=== PATIENT | male | born 1995 | race American Indian/Alaskan Native ===

== ENCOUNTER 2016-12-26 13:19 | Emergency (ER) | payer SELFPAY ==
[2016-12-26 13:30] VITALS: BP 124/88
[2016-12-26 14:05] LABS: Mean Corpuscular HGB Conc 31 % (32-34); Mean Corpuscular Hemoglobin 27 pg (28-32); Mean Corpuscular Volume 87 fl (84-94); Platelet Count 226 K/mm3 (140-440); Red Blood Count 6.47 M/mm3 (3.65-5.03); Red Cell Distribution Width 14.3 % (13.2-15.2)
[2016-12-26 14:23] LABS: Albumin 5.6 g/dL (3.9-5); Albumin/Globulin Ratio 1.6 %; Alkaline Phosphatase 118 units/L (35-129); Anion Gap 37 mmol/L; Bilirubin,Total 0.6 mg/dL (0.1-1.2); Blood Urea Nitrogen 17 mg/dL (9-20); Calcium 9.8 mg/dL (8.4-10.2); Carbon Dioxide 11 mmol/L (22-30); Chloride 95.5 mmol/L (98-107); Glucose 136 mg/dL (75-100); Hemoglobin 17.2 gm/dl (11.8-15.2); Lipase 30 units/L (13-60); Sodium 137 mmol/L (137-145); Total Protein 9.2 g/dL (6.3-8.2)
[2016-12-26 14:24] LABS: Hematocrit 56.1 % (35.5-45.6)
[2016-12-26 14:26] LABS: Potassium TNR mmol/L (3.6-5.0)
[2016-12-26 14:27] LABS: Alanine Aminotransferase TNR units/L (7-56)
[2016-12-26 15:38] LABS: Basophils % (Manual) 0 % (0.0-1.8); Blastocytes % (Manual) 0 %; Eosinophils % (Manual) 0 % (0.0-4.3)
[2016-12-26 15:39] LABS: Diff Status Complete; Ovalocytes Few
[2016-12-26 15:57] LABS: Alanine Aminotransferase 60 units/L (7-56); Albumin 5.6 g/dL (3.9-5); Albumin/Globulin Ratio 1.4 %; Alkaline Phosphatase 115 units/L (35-129); Anion Gap 32 mmol/L; BUN/Creatinine Ratio 15.45; Bilirubin,Total 0.7 mg/dL (0.1-1.2); Blood Urea Nitrogen 17 mg/dL (9-20); Calcium 10.2 mg/dL (8.4-10.2); Carbon Dioxide 15 mmol/L (22-30); Chloride 99.9 mmol/L (98-107); Glucose 145 mg/dL (75-100); Lipase 25 units/L (13-60); Potassium 5.7 mmol/L (3.6-5.0); Sodium 141 mmol/L (137-145); Total Protein 9.5 g/dL (6.3-8.2)
--- NOTE | 2016-12-27 06:19 | ED Elopement Review ---
ED Pt Elopement review - Results review Lab results: Laboratory Tests 12/26/16 12/26/16 12/26/16 13:45 13:45 15:10 WBC 28.0 H RBC 6.47 H Hgb 17.2 H Hct 56.1 H MCV 87 MCH 27 L MCHC 31 L RDW 14.3 Plt Count 226 Add Manual Diff Complete Total Counted 200 Seg Neutrophils % Family Service Worker Seg Neuts % (Manual) 84.5 H Band Neutrophils % 10.0 Lymphocytes % (Manual) 1.5 L Reactive Lymphs % (Man) 0 Monocytes % (Manual) 4.0 Eosinophils % (Manual) 0 Basophils % (Manual) 0 Metamyelocytes % 0 Myelocytes % 0 Promyelocytes % 0 Blast Cells % 0 Nucleated RBC % Not Reportable Seg Neutrophils # Man 23.7 H Band Neutrophils # 2.8 Lymphocytes # (Manual) 0.4 L Abs React Lymphs (Man) 0.0 Monocytes # (Manual) 1.1 H Eosinophils # (Manual) 0.0 Basophils # (Manual) 0.0 Metamyelocytes # 0.0 Myelocytes # 0.0 Promyelocytes # 0.0 Blast Cells # 0.0 WBC Morphology Not Reportable Hypersegmented Neuts Not Reportable Hyposegmented Neuts Not Reportable Hypogranular Neuts Not Reportable Smudge Cells Not Reportable Toxic Granulation Not Reportable Toxic Vacuolation Not Reportable Dohle Bodies Not Reportable Pelger-Huet Anomaly Not Reportable Dima Rods Not Reportable Platelet Estimate Appears normal Clumped Platelets Not Reportable Plt Clumps, EDTA Not Reportable Large Platelets Not Reportable Giant Platelets Not Reportable Platelet Satelliting Not Reportable Plt Morphology Comment Not Reportable RBC Morphology Not Reportable Dimorphic RBCs Not Reportable Polychromasia Not Reportable Hypochromasia Not Reportable Poikilocytosis Not Reportable Anisocytosis Not Reportable Microcytosis Not Reportable Macrocytosis Not Reportable Spherocytes Not Reportable Pappenheimer Bodies Not Reportable Sickle Cells Not Reportable Target Cells Not Reportable Tear Drop Cells Not Reportable Ovalocytes Few Helmet Cells Not Reportable Casas-Erda Bodies Not Reportable [place] Rings Not Reportable [place] Cells Not Reportable Bite Cells Not Reportable Crenated Cell Not Reportable Elliptocytes Not Reportable Acanthocytes (Spur) Not Reportable Rouleaux Not Reportable Hemoglobin C Crystals Not Reportable Schistocytes Not Reportable Malaria parasites Not Reportable Kyree Bodies Not Reportable Hem Pathologist Commnt No Sodium 137 Potassium TNR Chloride 95.5 L Carbon Dioxide 11 L Anion Gap 37 BUN 17 Creatinine 1.0 Estimated GFR > 60 BUN/Creatinine Ratio 17.00 Glucose 136 H Calcium 9.8 Total Bilirubin 0.6 AST TNR ALT TNR Alkaline Phosphatase 118 Troponin T < 0.010 < 0.010 Total Protein 9.2 H Albumin 5.6 H Albumin/Globulin Ratio 1.6 Lipase 30 12/26/16 15:10 WBC RBC Hgb Hct MCV MCH MCHC RDW Plt Count Add Manual Diff Total Counted Seg Neutrophils % Seg Neuts % (Manual) Band Neutrophils % Lymphocytes % (Manual) Reactive Lymphs % (Man) Monocytes % (Manual) Eosinophils % (Manual) Basophils % (Manual) Metamyelocytes % Myelocytes % Promyelocytes % Blast Cells % Nucleated RBC % Seg Neutrophils # Man Band Neutrophils # Lymphocytes # (Manual) Abs React Lymphs (Man) Monocytes # (Manual) Eosinophils # (Manual) Basophils # (Manual) Metamyelocytes # Myelocytes # Promyelocytes # Blast Cells # WBC Morphology Hypersegmented Neuts Hyposegmented Neuts Hypogranular Neuts Smudge Cells Toxic Granulation Toxic Vacuolation Dohle Bodies Pelger-Huet Anomaly Dima Rods Platelet Estimate Clumped Platelets Plt Clumps, EDTA Large Platelets Giant Platelets Platelet Satelliting Plt Morphology Comment RBC Morphology Dimorphic RBCs Polychromasia Hypochromasia Poikilocytosis Anisocytosis Microcytosis Macrocytosis Spherocytes Pappenheimer Bodies Sickle Cells Target Cells Tear Drop Cells Ovalocytes Helmet Cells Casas-Erda Bodies [place] Rings Khushboo Cells Bite Cells Crenated Cell Elliptocytes Acanthocytes (Spur) Rouleaux Hemoglobin C Crystals Schistocytes Malaria parasites Kyree Bodies Hem Pathologist Commnt Sodium 141 Potassium 5.7 H Chloride 99.9 Carbon Dioxide 15 L Anion Gap 32 BUN 17 Creatinine 1.1 Estimated GFR > 60 BUN/Creatinine Ratio 15.45 Glucose 145 H Calcium 10.2 Total Bilirubin 0.7 AST 51 H ALT 60 H Alkaline Phosphatase 115 Troponin T < 0.010 Total Protein 9.5 H Albumin 5.6 H Albumin/Globulin Ratio 1.4 Lipase 25 - Call Back decision Pt Call Back Decision: Call pt to return to ED EMILIA (WBC 28,000, K+ 5.7, Tachy, CP)
== END 2016-12-26 19:32 | disposition left against medical advice (07) ==
LOC: ED 13:19
DX: R07.9 Chest pain, unspecified (principal); R06.02 Shortness of breath; M79.1 Myalgia; Z53.21 Procedure and treatment not carried out due to patient leaving prior to being seen by health care provider
CPT/HCPCS: 36415; 80053; 83690; 84484; 85007; 85025

== ENCOUNTER 2017-04-26 11:48 | Emergency (ER) | payer SELFPAY ==
[2017-04-26 12:20] VITALS: BP 106/63
--- NOTE | 2017-04-26 12:40 | Emergency Department Report ---
Entered by AILYN SCHNEIDER, acting as scribe for YEN ROBERTSON NP. ED Rash HPI - HPI Chief Complaint: Skin Rash Stated Complaint: RASH ON FOREARM Time Seen by Provider: 04/26/17 12:15 Duration: 1 Day Location: Upper Extremities (right) Suspected Cause: Unknown Rash Symptoms: Yes Blistering, No Itching, No Facial Swelling, No Tongue/Oral Swelling, No Breathing Difficulties, No Choking Sensation, No Wheezing/Dyspnea, No Peeling, No Fever, No Lightheaded, No Malaise, No Myalgias Severity: moderate Other History: 21 y/o male with rash on the right forearm beginning yesterday. 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 Associated blistering, clear drainage - when pt scratchs, and 5/10 pain but denies animal or insect bites. PT describes rash as a burning pain. ED Review of Systems ROS: Stated complaint: RASH ON FOREARM Other details as noted in HPI Constitutional: denies: chills, fever Eyes: denies: eye pain, eye discharge ENT: denies: throat pain Respiratory: denies: shortness of breath Cardiovascular: denies: chest pain Endocrine: denies: unexplained weight loss Gastrointestinal: denies: abdominal pain, nausea, vomiting Musculoskeletal: denies: back pain Skin: rash (blistering, 5/10 pain) Neurological: denies: headache ED Past Medical Hx - Past Medical History Previous Medical History?: No - Surgical History Past Surgical History?: No - Social History Smoking Status: Never Smoker Substance Use Type: Marijuana - Medications Home Medications: Home Medications Medication Instructions Recorded Confirmed Last Taken Type No Known Home Medications [No 04/26/17 04/26/17 Unknown History Reported Home Medications] Rash Exam - Exam General: Vital signs noted. No distress. Alert and acting appropriately. HEENT: No Periorbital Edema, No Conjuctival Injection, No Chemosis, No Perioral Edema, No Tongue Edema, No Uvular Edema, No Compromised Airway, No Drooling Lungs: Yes Good Air Exchange, No Wheezes, No Ronchi, No Stridor, No Cough, No Labored Respirations, No Retractions, No Use of Accessory Muscles Heart: Yes Regular, No Murmur Skin: Yes Bulla(e) (vesicles on erythematous base to R fa, area of exocriation noted, + scabs ), Yes Weeping, Yes Tenderness, Yes Erythema, No Urticarial Rash , No Maculopapular Rash, No Morbilliform rash, No Excoriations, No Edema, No Encrustations Other: Positive: Abdomen Normal, Neurologic Normal, Musculoskeletal Normal ED Course Vital Signs 04/26/17 12:17 Temperature 98.6 F Pulse Rate 82 Respiratory 17 Rate Blood Pressure 106/63 O2 Sat by Pulse 100 Oximetry - Reevaluation(s) Reevaluation #1: 04/26/17 12:31 PT aware of dx and plan of care. PT aware that he is contagious and should avoid the elderly, infants and the immunocompromised. PT aware he will need to follow up with PCP for further testing to evaluate his immune status. - Pulse Oximetry Interpretation Digit-Finger Initial Pulse Oximetry Readin ED Medical Decision Making - Differential Diagnosis contact dermatitis, shingles Critical Care Time: No Critical care attestation.: If time is entered above; I have spent that time in minutes in the direct care of this critically ill patient, excluding procedure time. ED Disposition Clinical Impression: Shingles Qualifiers: Herpes zoster complications: without complications Qualified Code(s): B02.9 - Zoster without complications Disposition: DC-01 TO HOME OR SELFCARE Is pt being admited?: No Does the pt Need Aspirin: No Condition: Stable Instructions: Herpes Zoster (ED) Additional Instructions: No driving or ETOH after taking Tylenol #3 Referrals: ABIGAIL TRIPLETT MD [Staff Physician] - 3-5 Days Forms: Work/School Release Form(ED) Time of Disposition: 12:35 This documentation as recorded by the JENNIE shaw MATHEW,accurately reflects the service I personally performed and the decisions made by me,YEN ROBERTSON, JOHNNA.
== END 2017-04-26 12:42 | disposition home or self-care (01) ==
LOC: ED 11:48
DX: B02.9 Zoster without complications (principal); F12.10 Cannabis abuse, uncomplicated
CPT/HCPCS: 99282